=== PATIENT | male | born 1995 | race Caucasian/White ===

== ENCOUNTER → 2016-11-06 | Outpatient (CLI) | payer BC, OTHER ==
[~2016-11-06] MED LIST: ONDA-42 SL
[2016-11-06 10:09] LABS: MEAN PLATELET VOLUME 10.3 FL (7.4-10.4); RED BLOOD COUNT 4.78 10^6/uL (4.35-5.85); RED CELL DISTRIBUTION WIDTH 13.2 % (10.0-14.5); WHITE BLOOD COUNT 6.5 10^3/uL (4.3-11.0)
[2016-11-06 10:43] LABS: ALANINE AMINOTRANSFERASE 23 U/L (0-55); ALBUMIN 4.5 G/DL (3.2-4.5); ANION GAP 7 MMOL/L (5-14); ASPARTATE AMINO TRANSFERASE 22 U/L (5-34); BILIRUBIN,TOTAL 0.6 MG/DL (0.1-1.0); BLOOD UREA NITROGEN 12 MG/DL (7-18); BUN/CREATININE RATIO 12; CALCIUM 9.5 MG/DL (8.5-10.1); CARBON DIOXIDE 29 MMOL/L (21-32); CHLORIDE 104 MMOL/L (98-107); CHOLESTEROL 179 MG/DL (< 200); CREATININE SERUM 0.99 MG/DL (0.60-1.30); DIRECT LDL 118 MG/DL (1-129); GFR ESTIMATED > 60; GLUCOSE 89 MG/DL (70-105); POTASSIUM 4.2 MMOL/L (3.6-5.0); SODIUM 140 MMOL/L (135-145); TOTAL PROTEIN 7.2 G/DL (6.4-8.2); TRIGLYCERIDES 72 MG/DL (<150); VLDL CHOLESTEROL 14 MG/DL (5-40)
[2016-11-06 11:07] LABS: THYROID STIMULATING HORMONE 0.74 UIU/ML (0.35-4.94)
== END ==
LOC: LAB 09:49
DX: Z00.00 Encounter for general adult medical examination without abnormal findings (principal)
CPT/HCPCS: 36415; 80053; 80061; 84443; 85027

== ENCOUNTER → 2017-07-17 | Outpatient (CLI) | payer OTHER | LOC: CARD 12:54 | PROVIDERS: ATTEND Internal Medicine Cardiovascular Disease | DX: R00.2 Palpitations (principal); R00.0 Tachycardia, unspecified | CPT/HCPCS: 93306 ==

== ENCOUNTER 2018-04-05 13:46 | Emergency (ER) | payer OTHER ==
[~2018-04-05] VITALS: Ht 188 cm; Wt 98.0 kg
--- NOTE | 2018-04-05 13:53 | ED General ---
General Stated Complaint: HEADACHES, FEELS LIKE PASSING OUT Source of Information: Patient Exam Limitations: No Limitations History of Present Illness Date Seen by Provider: Apr 05, 2018 Time Seen by Provider: 13:52 Initial Comments To ER with headaches nearly every day for a few months. he reports that these seemed to go away when he is laying flat. This is a global headache with nausea but no vomiting. He does have occasional near syncope but has not actually passed out. Timing/Duration: Intermittent Severity: Moderate Associated Systoms: Headaches, Nausea/Vomiting Allergies and Home Medications Allergies Coded Allergies: No Known Drug Allergies (Unverified , 12/10/08) Home Medications Ondansetron Hcl 4 Mg Tab, 4 MG SL Q4H PRN for NAUSEA/VOMITING FOR NAUSEA AND VOMITING Prescribed by: ILYA MONTERO on 12/27/14 1640 Patient Home Medication List Home Medication List Reviewed: Yes Review of Systems Review of Systems Constitutional: see HPI EENTM: see HPI Respiratory: no symptoms reported Cardiovascular: no symptoms reported Genitourinary: no symptoms reported Musculoskeletal: no symptoms reported Skin: no symptoms reported Psychiatric/Neurological: No Symptoms Reported Hematologic/Lymphatic: No Symptoms Reported Immunological/Allergic: no symptoms reported Past Tmdlwcz-Khvpza-Uxnoug Hx Patient Social History Recent Foreign Travel: No Contact w/Someone Who Travel: No Seasonal Allergies Seasonal Allergies: No Past Medical History Orthopedic Reproductive Disorders: No Sexually Transmitted Disease: No Family Medical History Cancer Physical Exam Vital Signs Vital Signs - First Documented 04/05/18 14:00 Temp 97.9 Pulse 107 Resp 16 B/P (MAP) 147/96 (113) Pulse Ox 100 Capillary Refill : Height, Weight, BMI Height: 6'2" Weight: 216lbs. oz. 97.702825sj; BMI Method:Stated General Appearance: No Apparent Distress, WD/WN Eyes: Bilateral Eye Normal Inspection, Bilateral Eye PERRL, Bilateral Eye EOMI HEENT: PERRL/EOMI, TMs Normal Neck: Full Range of Motion, Normal Inspection Respiratory: Normal Breath Sounds, No Accessory Muscle Use, No Respiratory Distress Cardiovascular: Regular Rate, Rhythm, Normal Peripheral Pulses Gastrointestinal: Normal Bowel Sounds, Non Tender, Soft Extremity: Normal Capillary Refill, Normal Inspection Neurologic/Psychiatric: Alert, Oriented x3, No Motor/Sensory Deficits Skin: Normal Color, Warm/Dry Progress/Results/Core Measures Suspected Sepsis SIRS Temperature: Pulse: Respiratory Rate: Laboratory Tests 04/05/18 15:30: White Blood Count 5.5 Blood Pressure / Mean: Laboratory Tests 04/05/18 15:30: Creatinine 1.09, Platelet Count 308, Total Bilirubin 0.6 Results/Orders Lab Results Laboratory Tests Test 04/05/18 15:30 Range/Units White Blood Count 5.5 4.3-11.0 10^3/uL Red Blood Count 4.62 4.35-5.85 10^6/uL Hemoglobin 14.8 13.3-17.7 G/DL Hematocrit 40 40-54 % Mean Corpuscular Volume 87 80-99 FL Mean Corpuscular Hemoglobin 32 25-34 PG Mean Corpuscular Hemoglobin Concent 37 H 32-36 G/DL Red Cell Distribution Width 13.0 10.0-14.5 % Platelet Count 308 130-400 10^3/uL Mean Platelet Volume 10.3 7.4-10.4 FL Neutrophils (%) (Auto) 58 42-75 % Lymphocytes (%) (Auto) 30 12-44 % Monocytes (%) (Auto) 9 0-12 % Eosinophils (%) (Auto) 4 0-10 % Basophils (%) (Auto) 0 0-10 % Neutrophils # (Auto) 3.2 1.8-7.8 X 10^3 Lymphocytes # (Auto) 1.6 1.0-4.0 X 10^3 Monocytes # (Auto) 0.5 0.0-1.0 X 10^3 Eosinophils # (Auto) 0.2 0.0-0.3 10^3/uL Basophils # (Auto) 0.0 0.0-0.1 10^3/uL Erythrocyte Sedimentation Rate 5 0-15 MM/HR Sodium Level 138 135-145 MMOL/L Potassium Level 3.8 3.6-5.0 MMOL/L Chloride Level 107 98-107 MMOL/L Carbon Dioxide Level 23 21-32 MMOL/L Anion Gap 8 5-14 MMOL/L Blood Urea Nitrogen 15 7-18 MG/DL Creatinine 1.09 0.60-1.30 MG/DL Estimat Glomerular Filtration Rate > 60 BUN/Creatinine Ratio 14 Glucose Level 89 70-105 MG/DL Calcium Level 9.7 8.5-10.1 MG/DL Corrected Calcium 8.5-10.1 MG/DL Total Bilirubin 0.6 0.1-1.0 MG/DL Aspartate Amino Transf (AST/SGOT) 16 5-34 U/L Alanine Aminotransferase (ALT/SGPT) 16 0-55 U/L Alkaline Phosphatase 56 40-136 U/L C-Reactive Protein High Sensitivity 0.05 0.00-0.50 MG/DL Total Protein 7.2 6.4-8.2 GM/DL Albumin 4.6 H 3.2-4.5 GM/DL My Orders Orders - CIPRIANO ALVARADO APRN Iv Heplock-Insert (Order) (04/05/18 13:49) Mri Brain W/Wo Contrast (04/05/18 13:49) Gadobutrol Inj (Radiology) (Gadavist Inj (04/05/18 15:00) Iv Heplock-Insert (Order) (04/05/18 15:19) Cbc With Automated Diff (04/05/18 15:19) Comprehensive Metabolic Panel (04/05/18 15:19) Erythrocyte Sedimentation Rate (04/05/18 15:19) Hs C Reactive Protein (04/05/18 15:19) Medications Given in ED Current Medications Medications Dose Ordered Sig/Ernesto Route Start Time Stop Time Status Last Admin Dose Admin Gadobutrol 10 mmol ONCE ONCE IV 04/05/18 15:00 04/05/18 15:03 DC 04/05/18 14:55 8 MMOL Vital Signs/I&O 04/05/18 14:00 Temp 97.9 Pulse 107 Resp 16 B/P (MAP) 147/96 (113) Pulse Ox 100 Capillary Refill : Diagnostic Imaging Diagonstic Imaging: MRI Comments NAME: [facility] REC#: [id number] PT STATUS: REG ER : 1995 PHYSICIAN: CIPRIANO ALVARADO APRN ADMIT DATE: 04/05/18/ER Draft Date of Exam:04/05/18 MRI BRAIN W/WO CONTRAST PROCEDURE: MR imaging of the brain with and without contrast. TECHNIQUE: Multiplanar, multisequence MR imaging of the brain was performed with and without contrast. INDICATION: Headaches. COMPARISON: CT dated December 10, 2008. FINDINGS: No evidence of restricted diffusion to suggest a recent infarction. Focus of increased signal on the diffusion-weighted image within the high left parietal lobe is identified. This corresponds to region of increased T2 weighted signal, though no decreased signal is seen on the ADC map. Therefore, this is felt to relate to T2 shine through as opposed to true restricted diffusion. A rounded 1.7 x 1.5 cm region of increased FLAIR/T2 signal is identified immediately inferior to the right occipital horn. A small focus of enhancement is seen along the peripheral margin, measuring 0.8 x 0.8 cm. The coronal images demonstrate that this enhancement is curvilinear in nature. No additional enhancing mass. No suspicious dural enhancement. No midline shift, herniation, hydrocephalus or extra-axial fluid collection. Vascular flow-voids of the skull base are unremarkable. Small mucous retention cyst in the left maxillary sinus. Otherwise, the paranasal sinuses are clear. The orbits are unremarkable. The calvarium and extracalvarial soft tissues are unremarkable. IMPRESSION: 1. Focus of enhancement with associated abnormal T2 signal just inferior to the right occipital horn, as described above. Given appearance, this could relate to an infectious or inflammatory process such as focal encephalitis. Demyelination process such as multiple sclerosis would be an additional consideration, though no additional lesions are seen within the periventricular/pericallosal white matter to suggest multiple sclerosis. Neoplasm not totally excluded though felt less likely. 2. Abnormal signal within the left parietal subcortical white matter. No associated enhancement. This is nonspecific and could relate to a small focus of early chronic small vessel ischemic disease. Additional demyelination process without active demyelination could appear similar. 3. Additional findings as above. Dictated on workstation # [id number] Dict: 04/05/18 1457 Trans: 04/05/18 1516 [facility] [id number] Interpreted by: THAD DEL REAL MD Electronically signed by: Departure Communication (Admissions) 1605-I spoke with the [facility] triage nurse. She will relay these findings to her physician and call back with the plan.MRI images have been clouded. 1638- [facility] called back. Triage nurse spoke with neurologist Dr. Vela who accepts the patient. Patient will be transferred via his father by private vehicle. Patient should go to the front of and then to admitting where he will be escorted to his room. Impression Primary Impression: Headache Additional Impression: Abnormal brain MRI Disposition: XF SHT-TRM HOSP Condition: Stable Departure-Patient Inst. Decision time for Depature: 16:39 Referrals: ELISHA BROWER MD (PCP/Family) Primary Care Physician Patient Instructions: Headache, Adult (DC) Add. Discharge Instructions: 1. Dr. Guerin from neurology has accepted you. Go to the front of [facility] and then go to admissions. They will then escort you to your room on the neurology floor. CIPRIANO ALVARADO APRN Apr 05, 2018 13:53
--- OUTSIDE RECORDS SUMMARY | 2018-04-05 14:40 | XMS REPORT | Continuity of Care Document ---
Author Author [facility] Organization [facility] Address Unknown Phone Unavailable Allergies Active Description Code Type Severity Reaction Onset Reported/Identified Relationship to Patient Clinical Status Yes No Known Drug Allergies [id number] Drug Allergy Mild N/A 12/10/2008 Medications There is no data. Problems Date Dx Coded Attending Type Code Diagnosis Diagnosed By 09/26/2011 Ot V57.1 PHYSICAL THERAPY NEC 09/26/2011 Ot V58.43 AFTERCARE POST SURGERY INJURY/TRAUMA 12/27/2014 CAROLINE LOMAX, ILYA Munoz Ot 787.01 12/27/2014 CAROLINE LOMAX, ILYA Munoz Ot 787.91 12/27/2014 ILYA VELAZQUEZ MD Ot 789.09 09/12/2015 Ot 706.1 09/12/2015 Ot 840.7 09/12/2015 Ot E000.8 09/12/2015 Ot E007.5 09/12/2015 Ot E849.4 09/12/2015 Ot E886.0 03/19/2016 Ot 706.1 ACNE NEC 03/19/2016 Ot 840.7 (SLAP) SUPERIOR GLENOID LABRUM LESIONS 03/19/2016 Ot E000.8 OTHER EXTERNAL CAUSE STATUS 03/19/2016 Ot E007.5 ACTIVITIES INVOLVING SOCCER 03/19/2016 Ot E849.4 ACCID IN RECREATION AREA 03/19/2016 Ot E886.0 FALL IN SPORTS 09/28/2016 Ot 840.7 (SLAP) SUPERIOR GLENOID LABRUM LESIONS 09/28/2016 Ot E000.8 OTHER EXTERNAL CAUSE STATUS 09/28/2016 Ot E007.5 ACTIVITIES INVOLVING SOCCER 09/28/2016 Ot E849.4 ACCID IN RECREATION AREA 09/28/2016 Ot E886.0 FALL IN SPORTS 11/06/2016 Ot 840.7 (SLAP) SUPERIOR GLENOID LABRUM LESIONS 11/06/2016 Ot E000.8 OTHER EXTERNAL CAUSE STATUS 11/06/2016 Ot E007.5 ACTIVITIES INVOLVING SOCCER 11/06/2016 Ot E849.4 ACCID IN RECREATION AREA 11/06/2016 Ot E886.0 FALL IN SPORTS 11/07/2016 ELISHA BROWER MD Ot Z00.00 ENCNTR FOR GENERAL ADULT MEDICAL EXAM 11/07/2016 ELISHA BROWER MD Ot Z00.00 ENCNTR FOR GENERAL ADULT MEDICAL EXAM 11/08/2016 ELISHA BROWER MD Ot Z00.00 ENCNTR FOR GENERAL ADULT MEDICAL EXAM 07/19/2017 JONEL SANCHEZ MD Ot R00.0 TACHYCARDIA, UNSPECIFIED 07/19/2017 JONEL SANCHEZ MD Ot R00.2 PALPITATIONS Procedures There is no data. Results Test Result Range Automated blood complete blood count (hemogram) panel - 11/06/16 10:04 Blood leukocytes automated count (number/volume) 6.5 10*3/uL 4.3-11.0 Blood erythrocytes automated count (number/volume) 4.78 10*6/uL 4.35-5.85 Venous blood hemoglobin measurement (mass/volume) 14.9 g/dL 13.3-17.7 Blood hematocrit (volume fraction) 43 % 40-54 Automated erythrocyte mean corpuscular volume 90 [foz_us] 80-99 Automated erythrocyte mean corpuscular hemoglobin (mass per erythrocyte) 31 pg 25-34 Automated erythrocyte mean corpuscular hemoglobin concentration measurement ( mass/volume) 35 g/dL 32-36 Automated erythrocyte distribution width ratio 13.2 % 10.0-14.5 Automated blood platelet count (count/volume) 298 10*3/uL 130-400 Automated blood platelet mean volume measurement 10.3 [foz_us] 7.4-10.4 Comprehensive metabolic panel - 11/06/16 10:04 Serum or plasma sodium measurement (moles/volume) 140 mmol/L 135-145 Serum or plasma potassium measurement (moles/volume) 4.2 mmol/L 3.6-5.0 Serum or plasma chloride measurement (moles/volume) 104 mmol/L 98-107 Carbon dioxide 29 mmol/L 21-32 Serum or plasma anion gap determination (moles/volume) 7 mmol/L 5-14 Serum or plasma urea nitrogen measurement (mass/volume) 12 mg/dL 7-18 Serum or plasma creatinine measurement (mass/volume) 0.99 mg/dL 0.60-1.30 Serum or plasma urea nitrogen/creatinine mass ratio 12 NRG Serum or plasma creatinine measurement with calculation of estimated glomerular filtration rate > NRG Serum or plasma glucose measurement (mass/volume) 89 mg/dL 70-105 Serum or plasma calcium measurement (mass/volume) 9.5 mg/dL 8.5-10.1 Serum or plasma total bilirubin measurement (mass/volume) 0.6 mg/dL 0.1-1.0 Serum or plasma alkaline phosphatase measurement (enzymatic activity/volume) 63 U/L 40-136 Serum or plasma aspartate aminotransferase measurement (enzymatic activity/ volume) 22 U/L 5-34 Serum or plasma alanine aminotransferase measurement (enzymatic activity/volume ) 23 U/L 0-55 Serum or plasma protein measurement (mass/volume) 7.2 g/dL 6.4-8.2 Serum or plasma albumin measurement (mass/volume) 4.5 g/dL 3.2-4.5 Lipid 1996 panel - 11/06/16 10:04 Serum or plasma triglyceride measurement (mass/volume) 72 mg/dL <150 Serum or plasma cholesterol measurement (mass/volume) 179 mg/dL < 200 Serum or plasma cholesterol in HDL measurement (mass/volume) 44 mg/ dL 40-60 Cholesterol in LDL [mass/volume] in serum or plasma by direct assay 118 mg/dL 1-129 Serum or plasma cholesterol in VLDL measurement (mass/volume) 14 mg/ dL 5-40 THYROID STIMULATING HORMONE - 11/06/16 10:04 THYROID STIMULATING HORMONE 0.74 u[iU]/mL 0.35-4.94 Encounters ACCT No. Visit Date/Time Discharge Status Pt. Type Provider Facility Loc./Unit Complaint [id number] 07/17/2017 12:54:00 07/17/2017 23:59:59 CLS Outpatient JONEL SANCHEZ MD [facility] CARD R00.2 PALPITATIONS [id number] 06/07/2017 10:39:00 06/07/2017 23:59:59 CLS Preadmit JONEL SANCHEZ MD [facility] CARD R00.2 PALPITATIONS [id number] 02/27/2017 21:00:00 02/27/2017 23:59:59 CLS Preadmit ARAVIND ROTHMAN APRN [facility] SLEEP OBSTRUCTIVE SLEEP APNEA [id number] 11/06/2016 09:49:00 11/06/2016 23:59:59 CLS Outpatient INOCENTE LOMAX, ELISHA Cueto [facility] LAB ADULT HEALTH EXAMINATION [id number] 12/27/2014 13:22:00 12/27/2014 16:56:00 DIS Emergency ILYA VELAZQUEZ MD [facility] ER [id number] 11/18/2013 14:30:00 11/20/2013 16:17:00 DIS Outpatient [id number] 10/08/2013 12:34:00 10/08/2013 23:59:59 CLS Outpatient [id number] 10/02/2013 13:56:00 10/02/2013 23:59:59 CLS Outpatient [id number] 09/26/2011 16:03:00 Document Registration [id number] 07/25/2011 12:36:00 Document Registration [id number] 01/17/2011 12:14:00 Document Registration [id number] 12/28/2014 02:18:15 ACT Document Registration
[2018-04-05] MEDS ORDERED: GADOBUTROL 10 MMOL/10 ML (GADAVIST) VIAL IV ONE (15:00)
--- NOTE | 2018-04-05 15:17 | Diagnostic Imaging Report ---
PROCEDURE: MR imaging of the brain with and without contrast. TECHNIQUE: Multiplanar, multisequence MR imaging of the brain was performed with and without contrast. INDICATION: Headaches. COMPARISON: CT dated December 10, 2008. FINDINGS: No evidence of restricted diffusion to suggest a recent infarction. Focus of increased signal on the diffusion-weighted image within the high left parietal lobe is identified. This corresponds to region of increased T2 weighted signal, though no decreased signal is seen on the ADC map. Therefore, this is felt to relate to T2 shine through as opposed to true restricted diffusion. A rounded 1.7 x 1.5 cm region of increased FLAIR/T2 signal is identified immediately inferior to the right occipital horn. A small focus of enhancement is seen along the peripheral margin, measuring 0.8 x 0.8 cm. The coronal images demonstrate that this enhancement is curvilinear in nature. No additional enhancing mass. No suspicious dural enhancement. No midline shift, herniation, hydrocephalus or extra-axial fluid collection. Vascular flow-voids of the skull base are unremarkable. Small mucous retention cyst in the left maxillary sinus. Otherwise, the paranasal sinuses are clear. The orbits are unremarkable. The calvarium and extracalvarial soft tissues are unremarkable. IMPRESSION: 1. Focus of enhancement with associated abnormal T2 signal just inferior to the right occipital horn, as described above. Given appearance, this could relate to an infectious or inflammatory process such as focal encephalitis. Demyelination process such as multiple sclerosis would be an additional consideration, though no additional lesions are seen within the periventricular/pericallosal white matter to suggest multiple sclerosis. Neoplasm not totally excluded though felt less likely. 2. Abnormal signal within the left parietal subcortical white matter. No associated enhancement. This is nonspecific and could relate to a small focus of early chronic small vessel ischemic disease. Additional demyelination process without active demyelination could appear similar. 3. Additional findings as above. Dictated by: Dictated on workstation # [id number]
[2018-04-05 15:39] LABS: BASOPHILS % (AUTO) 0 % (0-10); EOSINOPHILS # (AUTO) 0.2 10^3/uL (0.0-0.3); EOSINOPHILS % (AUTO) 4 % (0-10); HEMATOCRIT 40 % (40-54); HEMOGLOBIN 14.8 G/DL (13.3-17.7); LYMPHOCYTES # (AUTO) 1.6 X 10^3 (1.0-4.0); LYMPHOCYTES % (AUTO) 30 % (12-44); MEAN CORPUSCULAR HEMOGLOBIN 32 PG (25-34); MEAN CORPUSCULAR HGB CONC 37 G/DL (32-36); MEAN CORPUSCULAR VOLUME 87 FL (80-99); MEAN PLATELET VOLUME 10.3 FL (7.4-10.4); MONOCYTES # (AUTO) 0.5 X 10^3 (0.0-1.0); MONOCYTES % (AUTO) 9 % (0-12); NEUTROPHILS # (AUTO) 3.2 X 10^3 (1.8-7.8); NEUTROPHILS % (AUTO) 58 % (42-75); PLATELET COUNT 308 10^3/uL (130-400); RED BLOOD COUNT 4.62 10^6/uL (4.35-5.85); WHITE BLOOD COUNT 5.5 10^3/uL (4.3-11.0)
[2018-04-05 15:58] LABS: ALANINE AMINOTRANSFERASE 16 U/L (0-55); ALBUMIN 4.6 GM/DL (3.2-4.5); ALKALINE PHOSPHATASE 56 U/L (40-136); BILIRUBIN,TOTAL 0.6 MG/DL (0.1-1.0); BUN/CREATININE RATIO 14; CALCIUM 9.7 MG/DL (8.5-10.1); CARBON DIOXIDE 23 MMOL/L (21-32); CHLORIDE 107 MMOL/L (98-107); CREATININE SERUM 1.09 MG/DL (0.60-1.30); GFR ESTIMATED > 60; GLUCOSE 89 MG/DL (70-105); POTASSIUM 3.8 MMOL/L (3.6-5.0); SODIUM 138 MMOL/L (135-145); TOTAL PROTEIN 7.2 GM/DL (6.4-8.2)
[2018-04-05 16:25] LABS: ERYTHROCYTE SEDIMENTATION RATE 5 MM/HR (0-15)
[2018-04-05 16:52] VITALS: BP 132/88
== END 2018-04-05 16:52 | disposition short-term general hospital (02) ==
LOC: EDUNIT# 13:46 → ER 13:47
DX: R51 Headache (principal); R93.0 Abnormal findings on diagnostic imaging of skull and head, not elsewhere classified
CPT/HCPCS: 36415; 70553; 80053; 85025; 85652; 86141

== ENCOUNTER 2018-04-10 12:52 | Outpatient (CLI) | payer OTHER ==
[~2018-04-10] VITALS: Ht 188 cm; Wt 90.3 kg
[2018-04-10] MEDS ORDERED: LACTATED RINGERS 1,000 ML IV PRN (13:27)
[2018-04-10] MEDS ORDERED: ONDANSETRON 4 MG/2 ML (SDV) Z0FRAN ONE (13:41)
[2018-04-10 14:34] VITALS: BP 125/80
[2018-04-10 15:55] VITALS: BP 105/76
== END 2018-04-10 15:55 | disposition home or self-care (01) ==
LOC: SDC 12:52
PROVIDERS: ATTEND Nurse Practitioner Family
DX: G97.1 Other reaction to spinal and lumbar puncture (principal)